=== PATIENT | female | born 1965 | race Caucasian/White ===

== ENCOUNTER → 2019-01-15 | Outpatient (CLI) | payer OTHER ==
--- NOTE | 2019-01-15 18:39 | Diagnostic Imaging Report ---
INDICATION: Routine screening. COMPARISON: Comparison is made with prior mammograms from 10/28/2015 and 01/09/2014. TECHNIQUE: 2-D and 3-D bilateral screening mammography was performed. The current study was also evaluated with a Computer Aided Detection (CAD) system. 3-D tomosynthesis was also performed and reviewed. FINDINGS: Both breasts remain heterogeneously dense, limiting the sensitivity of mammography. No mass or malignant-appearing microcalcifications are seen. The axillae are unremarkable. IMPRESSION: No mammographic features suspicious for malignancy are identified. ACR BI-RADS Category 1: Negative. Result letter will be mailed to the patient. Note: At least 10% of breast cancer is not imaged by mammography. Dictated by: Dictated on workstation # [id number]
== END ==
LOC: RAD 08:06
PROVIDERS: ATTEND Nurse Practitioner Family
DX: Z12.31 Encounter for screening mammogram for malignant neoplasm of breast (principal)
CPT/HCPCS: 77067

== ENCOUNTER 2019-03-04 08:46 | Outpatient (CLI) | payer OTHER ==
[~2019-03-04] VITALS: Ht 152 cm; Wt 72.7 kg
[2019-03-04] MEDS ORDERED: METF-397 PO (12:35)
[2019-03-04] MEDS ORDERED: OMG1KC PO (12:35)
== END 2019-03-04 12:42 | disposition home or self-care (01) ==
LOC: PREOP 08:46
PROVIDERS: ATTEND Surgery
DX: Z01.818 Encounter for other preprocedural examination (principal)

== ENCOUNTER 2019-03-11 09:13 | Day surgery (SDC) | payer OTHER ==
[~2019-03-11] VITALS: Ht 152 cm; Wt 72.7 kg
[~2019-03-11 09:13] MED LIST: METF-397 PO; OMG1KC PO
[2019-03-11 09:25] VITALS: BP 155/83
[2019-03-11] MEDS ORDERED: LACTATED RINGERS 1,000 ML IV STA (09:31)
[2019-03-11] MEDS ORDERED: LACTATED RINGERS 1,000 ML IV ONE (09:33)
[2019-03-11] MEDS ORDERED: HURRICAINE EXT TUBE (BENZOCAINE) XX PRN (09:45)
[2019-03-11] MEDS ORDERED: MIDAZOLAM 2 MG/2 ML (VERSED) VIAL ONE (10:25)
[2019-03-11] MEDS ORDERED: proPOfol 200 MG/20 ML (DIPRIVAN) VIAL IV ONE (10:25)
--- NOTE | 2019-03-11 10:35 | Progress Note-Pre Operative ---
Pre-Operative Progress Note H&P Reviewed The H&P was reviewed, patient examined and no changes noted. Date Seen by Provider: Mar 11, 2019 Time Seen by Provider: 10:34 Date H&P Reviewed: Mar 11, 2019 Time H&P Reviewed: 10:34 Pre-Operative Diagnosis: occult + stool, GERD, epigastric abd pain. JAYDEN ZAMAN DO Mar 11, 2019 10:35 POS
[2019-03-11 11:05] VITALS: BP 136/75
[2019-03-11 11:10] VITALS: BP 137/75
[2019-03-11] MEDS ORDERED: PANT40TA2 PO (11:13)
--- NOTE | 2019-03-11 11:13 | Discharge Inst-Simple/Standard ---
Discharge Inst-Standard Discharge Medications New, Converted or Re-Newed RX: Transmitted to Pharmacy Patient Instructions/Follow Up Plan of Care/Instructions/FU: 3 weeks Jame Activity as Tolerated: Yes Discharge Diet: Regular Diet JAYDEN ZAMAN DO Mar 11, 2019 11:13 POS
[2019-03-11 11:15] VITALS: BP 139/77
--- NOTE | 2019-03-11 11:15 | Progress Note-Post Operative ---
Post-Operative Progess Note Surgeon (s)/Floor Coverer (s) Surgeon JAYDEN ZAMAN DO Floor Coverer: na Pre-Operative Diagnosis occult + stool, GERD, epigastric abd pain. Post-Operative Diagnosis gastritis, normal colon Procedure & Operative Findings Date of Procedure 03/11/19 Procedure Performed/Findings egd c biopsies, colonoscopy Anesthesia Type per mda Estimated Blood Loss Estimated blood loss (mL): none Specimens/Packing Specimens Removed antrum JAYDEN ZAMAN DO Mar 11, 2019 11:15 POS
[2019-03-11 11:45] VITALS: BP 167/80
--- NOTE | 2019-03-11 13:19 | Anesthesia-General Post-Op ---
MAC Patient Condition Mental Status/LOC: Same as Preop Cardiovascular: Satisfactory Nausea/Vomiting: Absent Respiratory: Satisfactory Pain: Controlled Complications: Absent Post Op Complications Complications None Follow Up Care/Instructions Patient Instructions None needed. Anesthesiology Discharge Order Discharge Order Patient is doing well, no complaints, stable vital signs, no apparent adverse anesthesia problems. No complications reported per nursing. KI VELASQUEZ CRNA Mar 11, 2019 13:19 POS
--- NOTE | 2019-03-11 18:26 | OPERATIVE REPORT ---
DATE OF SERVICE: 03/11/2019 PREOPERATIVE DIAGNOSES: Occult positive stool, gastroesophageal reflux disease, epigastric abdominal pain. POSTOPERATIVE DIAGNOSES: Gastritis, normal colon. PROCEDURE: EGD with biopsies of the antrum and colonoscopy. SURGEON: Jayden Kilgore DO ANESTHESIA: Per MDA. ESTIMATED BLOOD LOSS: None. COMPLICATIONS: None. INDICATIONS: The patient is a 53-year-old female with occult positive stool, GERD and epigastric abdominal pain. She understands risks and benefits of procedure and wished to proceed with procedure. Consent was signed in the chart. DESCRIPTION OF PROCEDURE: The patient was taken to the endoscopy suite, placed in left lateral recumbent position. Timeout was performed. Scope was inserted down the mouth, esophagus and into the stomach and duodenum without difficulty. There were no polyps, mass or ulcerations within the duodenum. Scope was slowly retracted back into the stomach where it was further insufflated. Slight erythematous changes present. Some changes consistent with slight gastritis were present. Biopsies of the antrum were obtained. Scope was retroflexed noting no other pathology. Scope was returned to its normal position, slowly withdrawn to the distal esophagus, which had normal appearance. No polyps, masses or ulcerations. Scope was slowly retracted back to completely remove noting no other pathology. Digital rectal exam was performed. There were no palpable polyps, masses or ulcerations. Scope was inserted in the rectum and advanced all the way to the cecum with minimal difficulty. Prep was adequate. Scope was then slowly retracted back. There were no polyps, masses or ulcerations within the cecum, ascending, transverse, descending and sigmoid colon. Once in the rectum, scope was retroflexed noting no other pathology. Scope was returned to its normal position, slowly withdrawn until completely removed, noting no other pathology. The patient tolerated procedure well without any complications. She was taken to recovery room in stable condition. RECOMMENDATIONS: The patient will need repeat colonoscopy in 10 years unless any changes or family history of colon cancer, should then be 5 years. Any issues before that be seen at that time. The patient will be started on Protonix. She will follow up in the office in two to three weeks to review pathology that point. Further recommendations pending. Job ID: [id number] DocumentID: [id number] Dictated Date: 03/11/2019 11:19:28 [employer] Drm Consultant Date: 03/11/2019 18:25:01 Dictated By: JAYDEN KILGORE DO
== END 2019-03-11 12:15 | disposition home or self-care (01) ==
LOC: ENDO 09:13
PROVIDERS: ATTEND Surgery
DX: K29.50 Unspecified chronic gastritis without bleeding (principal); B96.81 Helicobacter pylori [H. pylori] as the cause of diseases classified elsewhere; K21.9 Gastro-esophageal reflux disease without esophagitis; K31.89 Other diseases of stomach and duodenum; R19.5 Other fecal abnormalities; E11.9 Type 2 diabetes mellitus without complications; Z80.9 Family history of malignant neoplasm, unspecified; Z98.51 Tubal ligation status; Z79.84 Long term (current) use of oral hypoglycemic drugs
CPT/HCPCS: 84703

== ENCOUNTER → 2019-04-28 | Outpatient (CLI) | payer OTHER ==
[~2019-04-28] MED LIST changes: +PANT40TA2 PO
== END ==
LOC: LAB 15:03
PROVIDERS: ATTEND Surgery
DX: B96.81 Helicobacter pylori [H. pylori] as the cause of diseases classified elsewhere (principal)

== ENCOUNTER 2019-05-12 09:40 | Outpatient (RCR) | payer OTHER | END 2019-08-10 | disposition home or self-care (01) | LOC: LAB 09:40 | PROVIDERS: ATTEND Surgery | DX: R19.7 Diarrhea, unspecified (principal); B96.81 Helicobacter pylori [H. pylori] as the cause of diseases classified elsewhere | CPT/HCPCS: 36415; 87338 ==